=== PATIENT | female | born 1940 | race Caucasian/White ===

== ENCOUNTER 2017-01-20 13:45 | Inpatient (IN) | payer MEDICARE, BC ==
[2017-01-17 20:26] LABS: A/G RATIO 1.6 (0.7-1.9); ALKALINE PHOSPHATASE 94 U/L (45-117); BUN (BLOOD UREA NITROGEN) 13 MG/DL (6-23); CALCIUM, SERUM 8.9 MG/DL (8.5-10.4); CHLORIDE, SERUM 105 MMOL/L (96-112); CHOL/HDL RATIO(NOT ORDER) 2.2 (0-5); CHOLESTEROL 109 MG/DL (< 200); CO2 (CARBON DIOXIDE) 28 MMOL/L (24-34); CREATININE 1.05 MG/DL (0.55-1.02); GFR AFRICAN AMERICAN 59 ML/MIN (>=60); GFR NON AFRICAN AMERICAN 51 ML/MIN (>=60); GLOBULIN 2.5 G/DL (2.5-4.1); GLUCOSE, SERUM 102 MG/DL (60-99); HDL CHOLESTEROL 50 MG/DL (> 49); IRON, SERUM 24 MCG/DL (35-150); LDL CHOLESTEROL 31 MG/DL (< 130); NON-HDL CHOLESTEROL 59 MG/DL (< 160); POTASSIUM, SERUM 4.8 MMOL/L (3.5-5.3); SGOT(AST) 12 U/L (5-40); SGPT(ALT) 15 U/L (5-65); SODIUM, SERUM 142 MMOL/L (135-148); TOTAL BILIRUBIN 0.5 MG/DL (0-1.2); TOTAL PROTEIN 6.5 G/DL (6.0-8.5); TRIGLYCERIDE 140 MG/DL (< 150)
[2017-01-17 21:04] LABS: CREATININE (RANDOM URINE) 56.6 MG/DL; MICROALBUMIN, RANDOM URINE 0.5 MG/DL
[2017-01-17 21:19] LABS: BASOPHILS 0.3 %; BASOPHILS ABSOLUTE 0.02 10/3/uL (0.0-0.16); EOSINOPHILS 1.9 %; EOSINOPHILS ABSOLUTE 0.12 10/3/uL (0.0-0.53); HEMATOCRIT 29.1 % (36.0-48.0); HEMOGLOBIN 7.8 g/dL (12.0-16.0); IMMATURE GRANULOCYTES 0.2 %; IMMATURE GRANULOCYTES ABSOLUTE 0.01 10/3/uL (0.0-0.11); LYMPHOCYTES 23.8 %; LYMPHOCYTES ABSOLUTE 1.53 10/3/uL (0.67-4.30); MANUAL DIFF NO %; MEAN CORPUS HGB CONC 26.8 g/dL (32.0-36.0); MEAN CORPUSCULAR HEMOGLOB 21.7 pg (26.0-34.0); MEAN CORPUSCULAR VOLUME 80.8 fL (80-100); MEAN PLATELET VOLUME 9.1 fL (9.2-13.0); MONOCYTES 9.6 %; MONOCYTES ABSOLUTE 0.62 10/3/uL (0.21-1.20); NEUTROPHILS 64.2 %; NEUTROPHILS ABSOLUTE 4.14 10/3/uL (2.02-8.40); PLATELET COUNT 371 10/3/uL (150-400); RBC DISTRIBUTION WIDTH 18.1 % (12.0-16.0); WHITE BLOOD CELLS 6.4 10/3/uL (4.5-10.5)
[2017-01-17 21:44] LABS: ANISOCYTOSIS 1+ (5-10/OIF) (0-5/OIF); HYPOCHROMIA 1+ (3-10/OIF) (0-2/OIF); PLATELET ESTIMATE ADQ (ADEQUATE)
[2017-01-19 18:16] LABS: RETICULOCYTE COUNT 1.5 % (0.5-2.5); RETICULOCYTE COUNT ABSOLUTE 52.7 10/3/uL (20.2-119.8)
[2017-01-19 18:50] LABS: FOLATE 15.6 NG/ML (>5.2)
--- NOTE | ~2017-01-20 | CN ---
Consultation Report [facility] [address] [place]. [address] NAME: MERCEDES JOVEL : 38 STATUS : ADM IN PAT#: [id number] AGE: 76 ADM/REG DATE : 01/20/17 MR#: [id number] REPORT SERV DATE: 01/21/17 DICTATED BY: TEN YORK DATE: 01/21/17 REPORT STATUS : Draft TRANSCRIBED BY: MODL DATE: 01/21/17 GI CONSULTATION DATE OF CONSULTATION: 01/21/2017 REASON FOR CONSULTATION: GI consult regarding iron deficiency anemia. HISTORY OF PRESENT ILLNESS: This is a pleasant 76-year-old woman, who was admitted and found to have iron deficiency anemia. Recent hematocrit 25.7, low MCV, iron 23, TIBC 414. She has had intermittent scant hematochezia but no melena. Stools have been normal daily and brown for the most part. She has developed left lower quadrant pain over the past 24 hours which is constant. She also had an episode of nonbloody emesis this morning. She has no symptoms of GERD or dysphagia. Last colonoscopy five years ago negative by report. She does have a history of colon polyps. 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 She does take multiple NSAIDs. PAST MEDICAL HISTORY: Mitral valve replacement, hypertension, hyperlipidemia, diverticulosis, history of colon polyps, hysterectomy with bilateral salpingo-oophorectomy, and appendectomy. ALLERGIES: NONE. MEDICATIONS: Aspirin, Lipitor, vitamin D, Coenzyme Q10, Lasix, Schuyler, Cozaar, Lopressor, K- Dur, Desyrel, garlic, magnesium, B12, iron, and Protonix which was just started. FAMILY HISTORY: Negative for GI malignancy. SOCIAL HISTORY: She does not use alcohol or tobacco significantly. REVIEW OF SYSTEMS: A complete review of systems was obtained and negative except that noted in the history of present illness. PHYSICAL EXAMINATION: VITAL SIGNS: She is afebrile. Temperature is 98.2, pulse 54, respirations 17, blood pressure 133/59. HEENT/NECK: Sclerae anicteric. Neck is supple without lymphadenopathy. Pharynx is pink without exudate. LUNGS: Clear to auscultation bilaterally. HEART: Regular rate and rhythm. S1, S2 heard without rubs or gallops. ABDOMEN: Normal bowel sounds. Belly is soft and nondistended. There is mild left lower quadrant tenderness without rebound or guarding. No hepatosplenomegaly is detected. Overall, benign abdomen. Consultation Report [facility] [address] [place]. [address] NAME: MERCEDES JOVEL : 38 STATUS : ADM IN PAT#: [id number] AGE: 76 ADM/REG DATE : 01/20/17 MR#: [id number] REPORT SERV DATE: 01/21/17 DICTATED BY: TEN YORK DATE: 01/21/17 REPORT STATUS : Draft TRANSCRIBED BY: MODBarrie DATE: 01/21/17 EXTREMITIES: No pedal edema or rash. NEUROLOGIC: Alert and oriented without focal deficit. Muscle exam is nontender. DATA: White blood cell count 4.9, hematocrit 25.3, MCV 78.8, platelets 211, and TSH normal. IMPRESSION: 1. Chronic iron deficiency anemia in the setting of multiple NSAIDs and history of colon polyps. Question peptic ulcer disease versus other. 2. Left lower quadrant pain and history of diverticulosis, question diverticulitis. RECOMMENDATIONS: 1. Continue Protonix. 2. Follow up CT scan results. 3. If negative, then proceed with EGD/colonoscopy. CC/SUREKHA Ten York M.D. / [id number] CC: Devan Hardy MD Larry Shuster, M.D.
--- NOTE | ~2017-01-20 | HP ---
History And Physical [place] [address] [facility] [place]. [address] NAME: MERCEDES JOVEL : 38 STATUS : ADM IN PAT#: [id number] AGE: 76 ADM/REG DATE : 01/20/17 MR#: [id number] REPORT SERV DATE: 01/20/17 DICTATED BY: JOHN CAPONE DATE: 01/20/17 REPORT STATUS : Draft TRANSCRIBED BY: MODL DATE: 01/20/17 DATE OF ADMISSION: 01/20/2017 REASON FOR ADMISSION: Anemia with dizziness, possible symptomatic anemia. HISTORY: This is a 76-year-old white female, who had anemia. She had a hematocrit of 29% when first seen by Dr. Dumas on 01/17/2017. She had a followup appointment on 01/19/2017, and hematocrit had fallen down to 25.7 from 29.1. She has a low MCV and her iron is 23 with a TIBC of 414. This is consistent with an iron-deficiency anemia. Because of drop in hematocrit, Dr. Dumas asked that the patient be admitted to the hospital for evaluation. She denies any bleeding. She has had no bright red blood. She did a year ago, but did not go back to the hand washer. She had a colonoscopy done about five years ago by Dr. Satya Mims, and he said for her to come back in five years. She was on Xarelto in the past. She does have mitral valve replacement with a tissue valve that was done two years ago by Dr. Justyn Valderrama at [facility]. She was apparently replaced because of severe mitral regurgitation. She does have some coronary artery disease and had a stent placed by Dr. Abdoul Elizabeth after being under the care of Dr. Cecily Ponce. She now sees Dr. Prosper Walters, who saw her at [facility] previously. She has evidence of small vessel cerebrovascular disease, but denies any symptoms of an acute stroke. She does have some falling down the steps and some balance problems. She was said to have a cyst of the brain in the past, though she is not aware of this diagnosis. She does have osteoporosis with compression fracture of the T-spine as well. She is sent to the hospital for the evaluation of acute blood loss anemia. Her B12 level is low as well at 172. In addition, she complains about her hands feeling cold all the time. She has veins that popped out in the hands on the palmar aspect. She denies any black bowel movements. She denies any bright red blood per rectum. She has had hysterectomy in the past. Has no female blood loss, no hemoptysis, no hematuria. PAST MEDICAL HISTORY: The most prolonged hospitalization the patient had was at [facility] in 12/2014 in which she had mitral valve replacement for what sounds like wide-open mitral regurgitation. She does have a history of hypertension in the past. She has seen Dr. Shawn Dumas on two occasions, most recently having converted from being followed by nurse practitioners. HOME MEDICATIONS: Include the following: Aspirin 81 mg p.o. daily, atorvastatin 40 mg p.o. daily and she does complain of a headache with taking this. She is on vitamin D 1000 units p.o. daily, coenzyme Q 100 mg p.o. daily, furosemide 40 mg p.o. daily, [place] 10/325 one p.o. b.i.d. p.r.n., losartan 25 mg p.o. daily, metoprolol 50 mg p.o. daily, potassium chloride 20 mg p.o. b.i.d., trazodone 5 mg p.o. at bedtime, garlic tablet one a day, and magnesium tablet p.o. daily. History And Physical [address] [address] NAME: MERCEDES JOVEL : 38 STATUS : ADM IN [facility]#: [id number] AGE: 76 ADM/REG DATE : 01/20/17 MR#: [id number] REPORT SERV DATE: 01/20/17 DICTATED BY: JOHN CAPONE DATE: 01/20/17 REPORT STATUS : Draft TRANSCRIBED BY: SUREKHA DATE: 01/20/17 ALLERGIES: NONE ARE KNOWN. SOCIAL HISTORY: She is , lives in [place]. She attended [facility] [employer] in the past. She does not smoke cigarettes, does not drink any alcohol. She has two daughters, who see about her. FAMILY HISTORY: There is no history of GI bleeding in the family. There is some high blood pressure, but no diabetes. REVIEW OF SYSTEMS: She complains of being dizzy when she moves her head. She also has a headache in the neck area. She has had some MRI scans of her back and includes evidence of osteoporosis and a thoracic compression fracture previously. She is on no nonsteroidal anti-inflammatory agents. She has had some swelling of her lower extremities. Dr. Walters has been adjusting her Lasix dose for this. Her hands feel cold and they occasionally turn blue. She has had no fever, chills, or night sweats. No unilateral weakness or weight loss. No melena, hematemesis, fits, seizures, or convulsions. No hemoptysis or hematuria. Otherwise, her review of systems is negative. PHYSICAL EXAMINATION: GENERAL: Older white female, in no acute distress. VITAL SIGNS: Her blood pressure was 104/74 with a heart rate 56, respiratory rate 18, afebrile with a heart rate of 56. HEENT: EOMI. Sclerae are clear. Conjunctivae pink. Tongue is pink. Pharynx is clear. NECK: No bruit and without any JVD. CHEST: Clear to A and P. HEART: Regular S1, S2 without murmur, gallop, or click. ABDOMEN: Soft and nontender. Bowel sounds positive. EXTREMITIES: Had no edema. Distal pulses are intact with dorsalis pedis and posterior tibial. NEUROLOGIC: She withdraws to plantar stimulation. Mechanical Energy Engineer is equal and symmetric bilaterally. Coordination intact. She have no tremor. She is symmetric and equal neurologically bilaterally. DTRs are equal and symmetric bilaterally in the knee joints and upper extremities. Jhqsce-py-otvu is intact. She is alert and oriented. Speech is goal directed and cogent, though she has many tangential comments. SKIN: Her hands are cool. There is no vanda clubbing of her digits, though there is slight cyanosis. There are vascular venous plexus in the fingers bilaterally, but no telangiectasia. No ecchymosis. LYMPHATICS: There is no adenopathy palpable. ASSESSMENT: 1. Anemia, iron deficiency. The iron of 23 and the TIBC of 414 suggest iron deficiency, as well, the B12 level of 172 will require replacement as well. I believe we should replace these two before transfusing at all, but we will do serial hemoglobin and hematocrit because of the drop in the hemoglobin and hematocrit since 01/17/2017. This anemia is multifactorial. We will check stools for occult blood to see if ongoing loss History And Physical [address] [place]. [address] NAME: MERCEDES JOVEL : 38 STATUS : ADM IN PAT#: [id number] AGE: 76 ADM/REG DATE : 01/20/17 MR#: [id number] REPORT SERV DATE: 01/20/17 DICTATED BY: JOHN CAPONE DATE: 01/20/17 REPORT STATUS : Draft TRANSCRIBED BY: MODL DATE: 01/20/17 is seen and obtain colonoscopy if necessary. 2. History of mitral valve replacement with previous use of anticoagulants. 3. History of coronary artery disease, one vessel, status post stenting for 40% lesion by Dr. Abdoul Elizabeth. 4. Cerebrovascular disease, likely small blood vessel with no acute symptomatic stroke, but anatomic evidence of small deep white matter disease. 5. Osteoporosis, compression fracture, T-spine. She is on narcotic medication for this pain. PLAN: With the patient being in the hospital with chronic illnesses, we will check serial hemoglobin and hematocrit, and transfuse if necessary. However, I believe that replacement with the B12 IM now and Nu-Iron 150 mg p.o. b.i.d. would be the more prudent treatment at this point. I will hold on GI consultation at this point since she denies any active bright red blood per rectum. She says this was told to Dr. Dumas by her daughter, who was not fully informed. MARTHA/SUREKHA John Capone M.D. / [id number] CC: Devan Hardy MD Joseph Sledge III, M.D.
--- NOTE | ~2017-01-20 | EGD ---
EGD REPORT [facility] [address] [place] [address] NAME: MERCEDES LAWSON : 38 STATUS : ADM IN PAT#: [id number] AGE: 76 ADM/REG DATE : 01/20/17 MR#: [id number] REPORT SERV DATE: 01/23/17 DICTATED BY: PEDRO SHAH DATE: 01/23/17 REPORT STATUS : Draft TRANSCRIBED BY: [facility] DATE: 01/23/17 Endoscopy Center Patient Name: Mercedes Lawson Date of : 1940 Attending MD: PEDRO SHAH MD Procedure Date No Time: 01/23/2017 Procedure: Upper GI endoscopy Indications: Iron deficiency anemia Referring MD: Shawn Dumas Medicines: Monitored Anesthesia Care Complications: No immediate complications. Estimated blood loss: None. Procedure: Pre-Anesthesia Assessment: - ASA Grade Assessment: IV - A patient with severe systemic disease that is a constant threat to life. After obtaining informed consent, the endoscope was passed under direct vision. Throughout the procedure, the patient's blood pressure, pulse, and oxygen saturations were monitored continuously. The GIF [id number] was introduced through the mouth, and advanced to the second part of duodenum. The upper GI endoscopy was accomplished without difficulty. The patient tolerated the procedure well. Findings: The esophagus was normal. The stomach was normal. The examined duodenum was normal. The cardia and gastric fundus were normal on retroflexion. Impression: - Normal examination Recommendation: - Perform a colonoscopy today. Procedure Code(s): --- Professional --- 20185, Esophagogastroduodenoscopy, flexible, transoral; diagnostic, including collection of specimen(s) by brushing or washing, when performed (separate procedure) Diagnosis Code(s): --- Professional --- D50.9, Iron deficiency anemia, unspecified CPT copyright 2013 [employer]. All rights reserved. The codes documented in this report are preliminary and upon cemetery counselor review may EGD REPORT [facility] [address] [place] [address] NAME: MERCEDES LAWSON : 38 STATUS : ADM IN PAT#: [id number] AGE: 76 ADM/REG DATE : 01/20/17 MR#: [id number] REPORT SERV DATE: 01/23/17 DICTATED BY: PEDRO SHAH DATE: 01/23/17 REPORT STATUS : Draft TRANSCRIBED BY: [employer] DATE: 01/23/17 be revised to meet current compliance requirements. Pedro Shah MD PEDRO SHAH MD 01/23/2017 8:38 AM This report has been signed electronically. Number of Addenda: 0 Note Initiated On: 01/23/2017 8:11 AM Scope Withdrawal Time 0 hours 0 minutes 0 seconds [address] [address]
--- NOTE | ~2017-01-20 | EGD ---
EGD REPORT [facility] [address] [address] NAME: MERCEDES LAWSON : 38 STATUS : ADM IN PAT#: [id number] AGE: 76 ADM/REG DATE : 01/20/17 MR#: [id number] REPORT SERV DATE: 01/23/17 DICTATED BY: PEDRO SHAH DATE: 01/23/17 REPORT STATUS : Draft TRANSCRIBED BY: [facility] DATE: 01/23/17 Endoscopy Center Patient Name: Mercedes Lawson Date of : 1940 Attending MD: PEDRO SHAH MD Procedure Date No Time: 01/23/2017 Procedure: Colonoscopy Indications: Iron deficiency anemia Referring MD: Shawn Dumas Medicines: Monitored Anesthesia Care Complications: No immediate complications. Estimated blood loss: Minimal. Procedure: Pre-Anesthesia Assessment: - ASA Grade Assessment: IV - A patient with severe systemic disease that is a constant threat to life. After I obtained informed consent, the scope was passed under direct vision. Throughout the procedure, the patient's blood pressure, pulse, and oxygen saturations were monitored continuously. The CF [id number] was introduced through the anus and advanced to the terminal ileum, with identification of the appendiceal orifice and IC valve. The colonoscopy was performed without difficulty. The patient tolerated the procedure well. The quality of the bowel preparation was good. Findings: The perianal and digital rectal examinations were normal. Pertinent negatives include normal sphincter tone and no palpable rectal lesions. A few scattered erosions with non-bleeding were found in the sigmoid colon. No stigmata of recent bleeding were seen. Biopsies were taken with a cold forceps for histology. Estimated blood loss was minimal. A few small-mouthed diverticula were found in the sigmoid colon. Non-bleeding external hemorrhoids were found during anoscopy and were small. The exam was otherwise without abnormality. Impression: - A few erosions in the sigmoid colon. Biopsied. - Diverticulosis in the sigmoid colon. - Non-bleeding external hemorrhoids. - The examination was otherwise normal. Recommendation: - Return patient to [facility] for [facility] care. - Regular diet. - Consider outpatient Pillcam examination - Would also consider alternative cause for anemia with EGD REPORT [address] [address] NAME: MERCEDES LAWSON : 38 STATUS : ADM IN [facility]#: [id number] AGE: 76 ADM/REG DATE : 01/20/17 MR#: [id number] REPORT SERV DATE: 01/23/17 DICTATED BY: PEDRO SHAH DATE: 01/23/17 REPORT STATUS : Draft TRANSCRIBED BY: [employer] DATE: 01/23/17 normal EGD and colon with Heme negative stools Procedure Code(s): --- Professional --- 17385, Colonoscopy, flexible, proximal to splenic flexure; with biopsy, single or multiple Diagnosis Code(s): --- Professional --- K63.3, Ulcer of intestine K64.4, Residual hemorrhoidal skin tags K64.9, Unspecified hemorrhoids K57.30, Diverticulosis of large intestine without perforation or abscess without bleeding D50.9, Iron deficiency anemia, unspecified CPT copyright 2013 [employer]. All rights reserved. The codes documented in this report are preliminary and upon r d manager review may be revised to meet current compliance requirements. Pedro Shah MD PEDRO SHAH MD 01/23/2017 9:14 AM This report has been signed electronically. Number of Addenda: 0 Note Initiated On: 01/23/2017 8:11 AM Scope Withdrawal Time 0 hours 15 minutes 4 seconds [address] [place] [address]
--- NOTE | ~2017-01-20 | DS ---
Discharge Summary [place] [address] [place]. [address] NAME: MERCEDES JOVEL : 38 STATUS : DIS IN PAT#: [id number] AGE: 76 ADM/REG DATE : 01/20/17 MR#: [id number] REPORT SERV DATE: 01/24/17 DICTATED BY: KALYAN MYERS DATE: 01/23/17 REPORT STATUS : Draft TRANSCRIBED BY: MODL DATE: 01/23/17 ADMISSION DATE: 01/20/2017 DISCHARGE DATE: 01/23/2017 DISCHARGE DIAGNOSES: 1. Iron deficiency anemia, history of mitral valve replacement with previous use of anticoagulation, not on any anticoagulation at this time. 2. Coronary artery disease, status post stenting. 3. Old small lacunar infarction in the past. 4. Osteoporosis. 5. Compression fractures of the T-spine. 6. Cervical spine disease with stenosis. 7. Multi facet arthropathy and uncovertebral joint spurring with multilevel neural foraminal narrowing. No severe neural foraminal narrowing noted. 8. A partially visible nonaggressive cystic space in the superior aspect of the right millie of uncertain etiology. Outpatient followup recommended. A dedicated MRI of the brain does not show the cyst space. CONSULTANTS DURING THIS HOSPITALIZATION: Ten York M.D. and Pedro Martinez MD of Gastroenterology. INVASIVE PROCEDURES DONE DURING THIS HOSPITALIZATION: EGD showing completely normal upper endoscopy. Colonoscopy showing mild erosions of the sigmoid colon, most likely inconsequential. External hemorrhoids, no evidence of any bleeding at this time. BRIEF HISTORY OF PRESENT ILLNESS: The patient is a 76-year-old white female who was transferred as a direct admit from Dr. Dumas's office for a low H and H. For a detailed history and physical exam, please see note dictated by Dr. Jeevan Haque on 01/20/2017. HOSPITAL COURSE: After being admitted to the hospital, this patient was monitored, serial H and Hs were done. Her hemoglobin remained completely stable at 7 or above and her hematocrit remained at 25 or above. She did not have any significant rectal bleeding. However, because of the iron deficiency anemia, she was given IV iron and she also had B12 deficiency, so she was given IM B12 for the last four days and she is being switched to sublingual B12 today and oral iron today as well. Because of the iron deficiency anemia, Gastroenterology was consulted. They proceeded with EGD and colonoscopy, report of which is as noted above. After the colonoscopy, this patient did well, tolerated a diet, GI recommended an outpatient PillCam which will be arranged through Dr. Mims's office. I did review the patient's MRIs received from Dr. Dumas's office and did not show any significant cystic lesions in the dedicated MRI of the brain. At this time, this patient medically remains stable and is being discharged in stable condition. DISCHARGE DISPOSITION: Home. DISCHARGE ACTIVITY: As tolerated. Discharge Summary [place] [address] [place]. [address] NAME: MERCEDES JOVEL : 38 STATUS : DIS IN PAT#: [id number] AGE: 76 ADM/REG DATE : 01/20/17 MR#: [id number] REPORT SERV DATE: 01/24/17 DICTATED BY: KALYAN MYERS DATE: 01/23/17 REPORT STATUS : Draft TRANSCRIBED BY: SUREKHA DATE: 01/23/17 DISCHARGE DIET: Low-residue diet. DISCHARGE MEDICATIONS: Iron 325 mg p.o. twice daily, B12 2000 mcg sublingual once daily, Metamucil one scoop daily with 8 ounces of water, aspirin 81 mg once daily, vitamin D 1000 units once daily, CoQ10 100 mg once daily, Lasix 40 mg once daily, Lopressor 50 mg twice daily, potassium 20 mEq twice daily, trazodone 50 mg once at bedtime, Lipitor 40 mg once daily, losartan 25 mg once daily, garlic tablets, magnesium tablets, and hydrocodone 10/325 one tablet twice daily p.r.n. for pain. DISCHARGE FOLLOWUP: With Dr. Dumas in one to two weeks for repeat H and H, with Dr. Mims in three to four weeks for an outpatient PillCam. More than 30 minutes spent planning this patient's discharge, reconciling medications, writing prescriptions, discussing hospital care, and follow up with the patient and the family at the bedside and documenting this discharge. JEMIMA/SUREKHA Kalyan Myers M.D. / [id number] CC: Devan Hardy MD Larry Shuster, M.D.
[~2017-01-20 13:45] MED LIST: ATEN100 PO; CYMBALTA60 PO; DIGITEK0.125 MG PO; ESTRACE1 MG PO
[2017-01-20] MEDS ORDERED: KDUR20 PO (15:09)
[2017-01-20] MEDS ORDERED: LIPITOR40 PO (15:10)
[2017-01-20] MEDS ORDERED: COZ25 PO (15:10)
[2017-01-20] MEDS ORDERED: L40 PO (15:10)
[2017-01-20] MEDS ORDERED: LOP50 PO (15:10)
[2017-01-20] MEDS ORDERED: GARLIC TABLET PO (15:11)
[2017-01-20] MEDS ORDERED: VITAMIN D1000 UNI1 PO (15:12)
[2017-01-20] MEDS ORDERED: TRAZ50 PO (15:12)
[2017-01-20] MEDS ORDERED: CO Q-10100 MG PO (15:12)
[2017-01-20] MEDS ORDERED: MAGNESIUM TABLET PO (15:12)
[2017-01-20] MEDS ORDERED: ASAB PO (15:14)
[2017-01-20] MEDS ORDERED: NORCO1 TAB PO (15:17)
[2017-01-20 17:11] LABS: HEMATOCRIT 26.4 % (36.0-48.0); HEMOGLOBIN 7.4 g/dL (12.0-16.0); RETICULOCYTE COUNT 1.3 % (0.5-2.5); RETICULOCYTE COUNT ABSOLUTE 45.8 10/3/uL (20.2-119.8)
[2017-01-20 23:08] LABS: HEMATOCRIT 27.4 % (36.0-48.0); HEMOGLOBIN 7.6 g/dL (12.0-16.0)
[2017-01-21 05:35] LABS: BASOPHILS 0.4 %; BASOPHILS ABSOLUTE 0.02 10/3/uL (0.0-0.16); EOSINOPHILS 4.9 %; EOSINOPHILS ABSOLUTE 0.24 10/3/uL (0.0-0.53); HEMATOCRIT 25.3 % (36.0-48.0); IMMATURE GRANULOCYTES 0.2 %; IMMATURE GRANULOCYTES ABSOLUTE 0.01 10/3/uL (0.0-0.11); LYMPHOCYTES ABSOLUTE 1.71 10/3/uL (0.67-4.30); MANUAL DIFF NO %; MEAN CORPUS HGB CONC 27.7 g/dL (32.0-36.0); MEAN CORPUSCULAR HEMOGLOB 21.8 pg (26.0-34.0); MEAN CORPUSCULAR VOLUME 78.8 fL (80-100); MEAN PLATELET VOLUME 8.4 fL (9.2-13.0); MONOCYTES 11.1 %; MONOCYTES ABSOLUTE 0.54 10/3/uL (0.21-1.20); NEUTROPHILS 48.4 %; NEUTROPHILS ABSOLUTE 2.36 10/3/uL (2.02-8.40); PLATELET COUNT 211 10/3/uL (150-400); RBC DISTRIBUTION WIDTH 17.7 % (12.0-16.0); RED CELL COUNT 3.21 10/6/uL (4.0-5.6); WHITE BLOOD CELLS 4.9 10/3/uL (4.5-10.5)
[2017-01-21 16:39] LABS: HEMATOCRIT 26.6 % (36.0-48.0); HEMOGLOBIN 7.3 g/dL (12.0-16.0)
[2017-01-21 16:57] LABS: CREATININE 0.89 MG/DL (0.55-1.02)
[2017-01-22 06:01] LABS: BASOPHILS 0.2 %; BASOPHILS ABSOLUTE 0.01 10/3/uL (0.0-0.16); EOSINOPHILS 3.2 %; EOSINOPHILS ABSOLUTE 0.21 10/3/uL (0.0-0.53); HEMATOCRIT 26.4 % (36.0-48.0); HEMOGLOBIN 7.2 g/dL (12.0-16.0); IMMATURE GRANULOCYTES 0.2 %; IMMATURE GRANULOCYTES ABSOLUTE 0.01 10/3/uL (0.0-0.11); LYMPHOCYTES 21.6 %; LYMPHOCYTES ABSOLUTE 1.43 10/3/uL (0.67-4.30); MEAN CORPUS HGB CONC 27.3 g/dL (32.0-36.0); MEAN CORPUSCULAR HEMOGLOB 21.6 pg (26.0-34.0); MEAN PLATELET VOLUME 8.9 fL (9.2-13.0); MONOCYTES 8.3 %; MONOCYTES ABSOLUTE 0.55 10/3/uL (0.21-1.20); NEUTROPHILS 66.5 %; PLATELET COUNT 232 10/3/uL (150-400); RBC DISTRIBUTION WIDTH 17.8 % (12.0-16.0); RED CELL COUNT 3.34 10/6/uL (4.0-5.6); WHITE BLOOD CELLS 6.6 10/3/uL (4.5-10.5)
[2017-01-22 06:02] LABS: MANUAL DIFF NO %
[2017-01-22 06:14] LABS: ALBUMIN 3.2 G/DL (3.5-5.0); BUN (BLOOD UREA NITROGEN) 11 MG/DL (6-23); CALCIUM, SERUM 8.8 MG/DL (8.5-10.4); CHLORIDE, SERUM 107 MMOL/L (96-112); CO2 (CARBON DIOXIDE) 29 MMOL/L (24-34); CREATININE 0.96 MG/DL (0.55-1.02); GFR AFRICAN AMERICAN 66 ML/MIN (>=60); GFR NON AFRICAN AMERICAN 57 ML/MIN (>=60); GLUCOSE, SERUM 97 MG/DL (60-99); POTASSIUM, SERUM 4.7 MMOL/L (3.5-5.3); SODIUM, SERUM 142 MMOL/L (135-148)
[2017-01-22 17:32] LABS: HEMATOCRIT 28.5 % (36.0-48.0); HEMOGLOBIN 7.8 g/dL (12.0-16.0)
[2017-01-23 05:05] LABS: BASOPHILS 0.4 %; BASOPHILS ABSOLUTE 0.03 10/3/uL (0.0-0.16); EOSINOPHILS 2.9 %; HEMATOCRIT 26.7 % (36.0-48.0); HEMOGLOBIN 7.2 g/dL (12.0-16.0); IMMATURE GRANULOCYTES 0.1 %; IMMATURE GRANULOCYTES ABSOLUTE 0.01 10/3/uL (0.0-0.11); LYMPHOCYTES 22.3 %; LYMPHOCYTES ABSOLUTE 1.55 10/3/uL (0.67-4.30); MANUAL DIFF NO %; MEAN CORPUSCULAR HEMOGLOB 20.8 pg (26.0-34.0); MEAN CORPUSCULAR VOLUME 77.2 fL (80-100); MEAN PLATELET VOLUME 8.9 fL (9.2-13.0); MONOCYTES 9.8 %; MONOCYTES ABSOLUTE 0.68 10/3/uL (0.21-1.20); NEUTROPHILS 64.5 %; NEUTROPHILS ABSOLUTE 4.48 10/3/uL (2.02-8.40); PLATELET COUNT 214 10/3/uL (150-400); RBC DISTRIBUTION WIDTH 17.9 % (12.0-16.0); RED CELL COUNT 3.46 10/6/uL (4.0-5.6)
[2017-01-23 05:17] LABS: ALBUMIN 3.4 G/DL (3.5-5.0); BUN (BLOOD UREA NITROGEN) 7 MG/DL (6-23); CALCIUM, SERUM 8.9 MG/DL (8.5-10.4); CHLORIDE, SERUM 107 MMOL/L (96-112); CO2 (CARBON DIOXIDE) 29 MMOL/L (24-34); CREATININE 0.94 MG/DL (0.55-1.02); GFR AFRICAN AMERICAN 67 ML/MIN (>=60); GFR NON AFRICAN AMERICAN 58 ML/MIN (>=60); GLUCOSE, SERUM 88 MG/DL (60-99); PHOSPHORUS, SERUM 2.7 MG/DL (2.5-4.5); POTASSIUM, SERUM 3.6 MMOL/L (3.5-5.3); SODIUM, SERUM 145 MMOL/L (135-148)
[2017-01-23] MEDS ORDERED: FESO4 PO (11:59)
[2017-01-23] MEDS ORDERED: VITAMIN B-121000 MC1 SL (12:00)
[2017-01-23] MEDS ORDERED: METPAKSF PO (12:03)
== END 2017-01-23 14:06 | disposition home or self-care (01) | DRG 812 ==
LOC: 6NO 13:45
PROVIDERS: Family Medicine; Internal Medicine; Internal Medicine Gastroenterology
PROC: 0DJ08ZZ Inspection of Upper Intestinal Tract, Via Natural or Artificial Opening Endoscopic (ICD-10-PCS; principal; 2017-01-23 08:31)
PROC: 0DBN8ZX Excision of Sigmoid Colon, Via Natural or Artificial Opening Endoscopic, Diagnostic (ICD-10-PCS; 2017-01-23 08:31)
DX: D50.9 Iron deficiency anemia, unspecified (principal); K63.3 Ulcer of intestine; I25.10 Atherosclerotic heart disease of native coronary artery without angina pectoris; E53.8 Deficiency of other specified B group vitamins; I67.9 Cerebrovascular disease, unspecified; M80.08XS Age-related osteoporosis with current pathological fracture, vertebra(e), sequela; K64.4 Residual hemorrhoidal skin tags; K64.9 Unspecified hemorrhoids; K57.30 Diverticulosis of large intestine without perforation or abscess without bleeding; Z95.5 Presence of coronary angioplasty implant and graft; Z86.010 Personal history of colon polyps; Z82.49 Family history of ischemic heart disease and other diseases of the circulatory system; Z79.82 Long term (current) use of aspirin; Z95.4 Presence of other heart-valve replacement; Z86.73 Personal history of transient ischemic attack (TIA), and cerebral infarction without residual deficits
CPT/HCPCS: 36415; 74177; 80053; 80061; 80069; 82043; 82272; 82565; 82607; 82728; 82746; 83540; 83550; 84443; 84466; 85014; 85018; 85025; 85045; 86850; 86900; 86901; 86920; 88305; A9270-GY; J2405; J2916; Q9967